=== PATIENT | female | born 1990 | race African-American/Black ===

== ENCOUNTER → 2023-06-28 13:32 | Outpatient (REF) | payer OTHER, SELFPAY | LOC: PNTC 13:32 | PROVIDERS: ATTENDING PHYSICIAN Obstetrics & Gynecology | DX: O30.049 Twin pregnancy, dichorionic/diamniotic, unspecified trimester (principal) | CPT/HCPCS: 59025; 76816 ==

== ENCOUNTER → 2023-07-05 13:29 | Outpatient (REF) | payer OTHER, SELFPAY | LOC: PNTC 13:29 | PROVIDERS: ATTENDING PHYSICIAN Obstetrics & Gynecology | DX: O30.049 Twin pregnancy, dichorionic/diamniotic, unspecified trimester (principal) | CPT/HCPCS: 59025; 76815 ==

== ENCOUNTER → 2023-07-12 13:23 | Outpatient (REF) | payer OTHER, SELFPAY | LOC: PNTC 13:23 | PROVIDERS: ATTENDING PHYSICIAN Obstetrics & Gynecology | DX: O30.049 Twin pregnancy, dichorionic/diamniotic, unspecified trimester (principal) | CPT/HCPCS: 59025; 76815 ==

== ENCOUNTER → 2023-07-19 13:16 | Outpatient (REF) | payer OTHER, SELFPAY | LOC: PNTC 13:16 | PROVIDERS: ATTENDING PHYSICIAN Obstetrics & Gynecology | DX: O30.049 Twin pregnancy, dichorionic/diamniotic, unspecified trimester (principal) | CPT/HCPCS: 59025; 76815 ==

== ENCOUNTER → 2023-07-26 13:28 | Outpatient (REF) | payer OTHER, SELFPAY | LOC: PNTC 13:28 | PROVIDERS: ATTENDING PHYSICIAN Obstetrics & Gynecology | DX: O30.049 Twin pregnancy, dichorionic/diamniotic, unspecified trimester (principal) | CPT/HCPCS: 36415; 59025; 76816 ==

== ENCOUNTER 2023-07-29 15:42 | Inpatient (IN) | payer OTHER, SELFPAY ==
[2023-07-29 16:05] LABS: Hematocrit 37.6 % (37.0-47.0); Hemoglobin 12.8 g/dL (12.0-16.0); Mean Corpuscular Hgb 28.1 pg (27.0-31.0); Mean Corpuscular Volume 82.5 fL (81.0-99.0); Mean Platelet Volume 11.9 fL (7.4-10.4); Platelet Count 181 10^3/uL (130-400); Red Blood Cell Count 4.56 10^6/uL (4.20-5.40); White Blood Cell Count 10.9 10^3/uL (4.8-10.8)
[2023-07-29] MEDS: TYLENOL 1000 MG PO (16:05)
[2023-07-29 16:18] LABS: INR 0.89; PT 11.9 Sec (11.4-14.6)
[2023-07-29 16:19] LABS: APTT 26.3 Sec (23.4-35.0)
[2023-07-29 18:02] VITALS: BP 120/79
[2023-07-29] MEDS: TORADOL 15 MG IV (22:52)
[2023-07-30] MEDS: FLUSH (NSS) 3 FLUSH IV (05:14)
[2023-07-30] MEDS: TORADOL 15 MG IV ×3 (05:14→16:59)
[2023-07-30 05:38] LABS: Hematocrit 33.7 % (37.0-47.0); Hemoglobin 11.3 g/dL (12.0-16.0); Mean Corp Hgb Conc. 33.5 g/dL (33.0-37.0); Mean Corpuscular Hgb 28.5 pg (27.0-31.0); Mean Corpuscular Volume 84.9 fL (81.0-99.0); Platelet Count 150 10^3/uL (130-400); Red Blood Cell Count 3.97 10^6/uL (4.20-5.40); Red Cell Dist. Width 13.6 % (11.5-14.5); White Blood Cell Count 18.1 10^3/uL (4.8-10.8)
--- NOTE | 2023-07-30 16:09 | W.PN.ANS.POP ---
Anesthesia Post Operative
- Anesthesia Post Op Note
Vital Signs Stable-See Nursing Note: Yes
Airway Patent: Yes
Adequate Pain Control: Yes
Change in Mental Status: No
Current Postoperative Nausea & Vomiting: No
Anesthesia Complications: No
General Anesthetic Recall: No
Unplanned Admission: No
Post Op Hydration Adequate: Yes
[2023-07-31] MEDS: MOTRIN 600 MG PO ×3 (01:57→15:36)
[2023-07-31] MEDS: TYLENOL 650 MG PO (09:45)
[2023-07-31 17:41] LABS: Syphilis/T. pallidum Ab Reflex Negative (Negative)
[2023-08-01] MEDS: MOTRIN 600 MG PO ×2 (00:08→07:18)
[2023-08-01] MEDS: TYLENOL 650 MG PO (07:20)
--- NOTE | 2023-08-01 14:16 | CM ---
Test Design Engineer met with new parents at bedside
Mom confirmed address listed. Mom, Dad and big brother currently live in home
Parents have named their Twin girls - Azeb and Angelina
Parents report they have all supplies for infants including car seats
Mom plans to breast feed her babies, may supplement. She does have a breast pump
Parents plan to take newborns to [facility] in [place]. They have appointments scheduled for tomorrow.
CM will follow for any additional needs at d/c
--- NOTE | 2023-08-02 09:18 | W.DS.TRANS ---
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
-
Discharge Instructions:
Discharge Diagnosis/Procedures Term twin , delivered; s/p RLTCS
Instructions:
Stand-Alone Forms: LDRP Delivery
Changes to Home Medications: No
Discharge Medications:
DC Medications w/original date entered in [employer]
vit no.95-ferrous fumarate 28 mg-folic acid 800 mcg tablet () 1 ea PO DAILY Supplement 07/21/21
sennosides 8.6 mg-docusate sodium 50 mg tablet 1 tab PO DAILYPRN PRN constipation 07/25/21
acetaminophen 325 mg tablet 650 mg PO Q4HPRN PRN mild pain #0 tabs 08/01/23
ferrous sulfate 1 tab PO 1XD anemia ##0 08/01/23
ibuprofen 600 mg tablet 600 mg PO Q6HPRN PRN cramps #30 tabs 08/01/23
oxycodone 5 mg capsule 5 mg PO Q4H PRN severe pain #5 caps 08/01/23
Home Medication Changes
Pending Results: No
Total time spent discharging patient (in min): 20
== END 2023-08-01 13:23 | disposition home or self-care (01) | DRG 788 ==
LOC: LDRP 15:42
PROVIDERS: ADMITTING PHYSICIAN Obstetrics & Gynecology
PROC: 10D00Z1 Extraction of Products of Conception, Low, Open Approach (ICD-10-PCS; 2023-07-29)
DX: O45.93 Premature separation of placenta, unspecified, third trimester (principal); Z3A.37 37 weeks gestation of pregnancy; Z37.2 Twins, both liveborn; O30.043 Twin pregnancy, dichorionic/diamniotic, third trimester; O42.02 Full-term premature rupture of membranes, onset of labor within 24 hours of rupture; Z82.49 Family history of ischemic heart disease and other diseases of the circulatory system; O34.211 Maternal care for low transverse scar from previous cesarean delivery
CPT/HCPCS: 88307; 85027; 85610; 85730; 86780; 86850; 86900; 86901

== ENCOUNTER → 2024-04-29 15:41 | Outpatient (REF) | payer OTHER, SELFPAY | LOC: HWRAD 15:41 | PROVIDERS: ATTENDING PHYSICIAN Student in an Organized Health Care Education/Training Program | DX: R05.1 Acute cough (principal) | CPT/HCPCS: 71046 ==